=== PATIENT | male | born 1975 | race Caucasian/White ===

== ENCOUNTER → 2019-03-11 | Outpatient (CLI) | payer BC ==
[2019-03-11 20:31] LABS: CHOLESTEROL RISK RATIO 3.6
== END ==
LOC: ZCOL.LAB 17:39
PROVIDERS: Family Medicine
DX: Z13.220 Encounter for screening for lipoid disorders (principal); R79.89 Other specified abnormal findings of blood chemistry

== ENCOUNTER → 2019-06-10 | Outpatient (CLI) | payer BC | LOC: COL.RAD 10:12 | DX: R05 Cough (principal) ==

== ENCOUNTER → 2019-07-22 | Outpatient (CLI) | payer BC | LOC: COL.RAD 09:12 | DX: J18.9 Pneumonia, unspecified organism (principal) ==